=== PATIENT | female | born 2000 | race Hispanic/Latino ===

== ENCOUNTER 2023-09-19 04:04 | Emergency (ER) | payer OTHER ==
[2023-09-19] MEDS ORDERED: Acetaminophen 500 MG TAB ONE (04:19)
[2023-09-19 04:51] LABS: #Monocytes 0.9 thou/uL (0.11-0.59); #Neutrophils 7.5 thou/uL (1.40-6.50); %Basophils 0.1 % (0.0-1.0); %Eosinophils 0.3 % (0.0-10.0); %Monocytes 9.3 % (0.0-10.0); %Neutrophils 77.9 % (42.0-75.0); Hematocrit 33.6 % (36.0-47.0); Hemoglobin 11.3 g/dL (12.0-16.0); Mean Corpuscular HGB CONC 33.6 g/dL (32.0-36.0); Mean Corpuscular Volume 95.2 fl (78.0-98.0); Mean Platelet Volume 9.2 fL (7.4-10.4); Platelet Count 251 10x3/uL (130-400); Red Blood Cell (RBC) Count 3.53 mill/uL (4.20-5.40); White Blood Cell (WBC) Count 9.7 10x3/uL (4.8-10.8)
[2023-09-19 05:21] LABS: ALT (SGPT) 9 U/L (8-55); AST (SGOT) 16 U/L (5-34); Albumin 3.7 g/dL (3.5-5.0); Alkaline Phosphatase 93 U/L (40-110); Anion Gap 14 mmol/L (10-20); BUN (Urea Nitrogen) 6 mg/dL (7.0-18.7); Bilirubin, Total 0.5 mg/dL (0.2-1.2); Calc. Creatinine Clearance 0 mL/min (70-130); Calcium 9.1 mg/dL (7.8-10.44); Carbon Dioxide 24 mmol/L (22-29); Chloride 105 mmol/L (98-107); Estimated GFR 131; Globulin 3.3 g/dL (2.4-3.5); Glucose 92 mg/dL (70-105); Lipase 35 U/L (8-78); Magnesium 1.8 mg/dL (1.6-2.6); Potassium 3.5 mmol/L (3.5-5.1); Sodium 139 mmol/L (136-145)
== END 2023-09-19 05:16 | disposition short-term general hospital (02) ==
LOC: ERS 04:04
DX: O99.891 Other specified diseases and conditions complicating pregnancy (principal); R10.9 Unspecified abdominal pain; R11.0 Nausea; M54.50 Low back pain, unspecified; Z3A.25 25 weeks gestation of pregnancy
CPT/HCPCS: 80053; 83690; 83735; 85025

== ENCOUNTER 2025-10-19 08:12 | Day surgery (SDC) | payer MEDICAID ==
[2025-10-19] MEDS ORDERED: Acetaminophen 500 MG TAB ONE (08:21)
[2025-10-19] MEDS: Acetaminophen 500 MG TAB PO SCH (08:22)
[2025-10-19] MEDS: Iron Sucrose Complex 500 MG in Sodium Chloride 0.9% 250 ML 250 ML IVPB SCH (08:43)
[2025-10-19 15:01] VITALS: BP 106/64; TEMP 97.6
[2025-10-20] MEDS ORDERED: FLU (Fluarix Triv) 25-26 (6MOS UP)/PF 45 MCG/0.5 ML Syringe IM ONE (15:15)
== END 2025-10-19 13:35 | disposition home or self-care (01) ==
LOC: ONC/OP 08:12
PROVIDERS: ATTEND Family Medicine
DX: O99.019 Anemia complicating pregnancy, unspecified trimester (principal); Z3A.00 Weeks of gestation of pregnancy not specified
CPT/HCPCS: 96365; 96366; J1756; J7050